=== PATIENT | female | born 2000 | race Caucasian/White ===

== ENCOUNTER 2021-12-06 09:04 | Emergency (ER) | payer MEDICAID, OTHER, SELFPAY ==
[2021-12-06 10:41] VITALS: BP 169/70; PULSE 82; RESP 18; TEMP 36.4; O2SAT 94
--- NOTE | 2021-12-06 11:52 | ED_ITS ---
HPI - General Adult General Chief complaint: General Medical Stated complaint: pain in stomach Time Seen by Provider: 12/06/21 11:42 Source: patient Mode of arrival: ambulatory Limitations: language barrier (Dutch educational sign language interpreter #[id number]) History of Present Illness HPI narrative: 21-year-old female presenting to the ED complaining lower pelvic discomfort, yellow vaginal discharge, and dysuria. States ex boyfriend cheated on her and is also experiencing symptoms. LMP now. Denies nausea, vomiting, diarrhea, abnormal vaginal bleeding Onset (ago): day(s) Related Data Previous Rx's Medication Instructions Recorded doxycycline hyclate 100 mg tablet 100 mg PO BID 7 days #14 tabs 12/06/21 Allergies Allergy/AdvReac Type Severity Reaction Status Date / Time DIPIRONA Allergy Unknown Uncoded 12/06/21 10:40 Review of Systems Review of Systems: Constitutional: No Fever, No Chills, No Fatigue, No Malaise ENT/Mouth: No Ear Pain, No Nasal Congestion, No sore throat, No Rhinorrhea, No Swallowing Difficulty Eyes: No Eye Pain, No Swelling, No Redness, No Vision Changes Cardiovascular: No Chest Pain, No SOB, No Edema Respiratory: No Cough, No Sputum, No Dyspnea Gastrointestinal: No Nausea, No Vomiting, No Diarrhea, No Constipation, + Abdominal pain Genitourinary: No irregular bleeding, + Dysuria, No Urinary Frequency, No Hematuria, No Urgency, No Flank Pain, No Urinary Flow Changes Musculoskeletal: No joint pain, No Myalgias, No Joint Swelling Skin: No Skin Lesions, No rash Neuro: No Weakness, No Dizziness, No Headache Yes all other systems are reviewed and are negative Constitutional: Constitutional: Reports as per [facility] Past Medical History Attestation statement: The following information was validated with the patient. Social History Social History Advance Directives: No Advance Directives Information Provided: No Physical Exam ED Vital Signs: Vital Signs - 24 hr 12/06/21 10:41 Temperature 97.6 F Pulse Rate 82 Respiratory Rate 18 Blood Pressure 169/70 H Pulse Oximetry 94 Oxygen Delivery Method Room Air BMI result Body Mass Index 0.0 Const General: cooperative, healthy appearing, comfortable and no acute distress Orientation/consciousness: patient oriented x3 Limitations: no limitations HENMT Head: Yes normal to inspection and Yes atraumatic Ears: hearing grossly normal bilaterally General nose exam: Normal external nose present Face and sinus: Yes normal facial exam Eyes General: appearance normal, both eyes and all related structures EOM: EOMs intact bilaterally Neck Neck: Yes normal visual inspection and Yes no meningeal signs Resp Effort & Inspection: normal respiratory effort and no respiratory distress Auscultation: clear to auscultation bilaterally Cardio Rate: regular rate Heart sounds: S1 normal heart sound present and S2 normal heart sound present GI Inspection: Yes normal to inspection Palpation (GI): Soft to palpation, nontender, no guarding and not rigid General: Yes no CVA tenderness Speculum Exam - Vagina: vaginal bleeding Speculum Exam - Cervix: Abnormal cervical discharge present clear Bimanual exam- vagina & uterus: no cervical motion tenderness Bimanual Exam- Adnexa, other: normal adnexae, no masses and no tenderness OB/external & speculum: vaginal bleeding Back/Spine/Pelvis Back: no CVA tenderness Skin Rashes: no rashes Wounds: no wounds Neuro General: patient oriented x3, tone normal and no meningeal signs Gait exam (Neuro): Normal gait present Extrem General: Yes normal to inspection Course Course Course Narrative: -UA with blood/RBCs as expected, not infected. negative -patient will receive IM Rocephin and p.o. doxycycline in the ED Results discussed with patient including worrisome signs and symptoms and strict return precautions, and when to return to the emergency department. They verbalized understanding and feel safe for discharge at this time. Medical Decision Making MDM Narrative Medical decision making narrative: 21-year-old female presenting to the ED complaining lower pelvic discomfort, yellow vaginal discharge, and dysuria. On exam vital signs stable, NAD, nontoxic appearing, abdomen soft/nontender, no CVA tenderness, on pelvic exam vaginal bleeding noted, patient is on menses, with clear vaginal discharge, no CMT or adnexal tenderness/masses. Concern for STI. Rule out UTI/. Low suspicion for ovarian torsion/TOA Plan: UA, , STI testing Patient agreeable to empiric STI treatment Medical Records Medical records reviewed: Yes I reviewed the patient's medical records. Lab Data Lab results reviewed: Yes I reviewed the patient's lab results. Labs: Lab Results 12/06/21 12/06/21 Range/Units 12:08 12:08 Urine Color Yellow Urine Appearance Clear Urine pH 8.0 (5.0-9.0) Ur Specific [place] 1.010 (1.005-1.025) Urine Protein Negative (Neg-Trace) mg/dL Urine Glucose (UA) Negative (Negative) mg/dL Urine Ketones Negative (Negative) mg/dL Urine Blood Large (3+) H (Negative) Urine Nitrite Negative (Negative) Ur Leukocyte Esterase Negative (Negative) Urine RBC 6-10 H (0-2) /HPF Urine WBC 0-5 (0-5) /HPF Ur Squamous Epith Cells 3-5 (0-2) /HPF Urine Bacteria None Seen (None Seen) Hyaline Casts 0-2 (0-2) /LPF Urine Test NEGATIVE (NEGATIVE) Discharge Plan Discharge Clinical Impression: Vaginal discharge Patient Disposition: Home, Self-Care Additional Instructions: We tested you for sexually transmitted infections. The results will be back in 48-72 hours Your empirically treated for gonorrhea and chlamydia with a an injection and doxycycline which you need to continue taking twice a day for 1 week Avoid any sexual contact until you know the results of her cultures. Contact your partner so they can be tested and treated as well. We recommend you be retested for STIs once symptoms have resolved and your done treatment If you develop persistent worsening symptoms, vaginal bleeding, abdominal pain, nausea/vomiting or fever return to the emergency department Testamos voc? para infec??es sexualmente transmiss?veis. Os resultados estar?o de volta em 48-72 horas Seu tratamento emp?rico para gonorreia e clam?josue com betsy inje??o e doxiciclina que voc? precisa continuar tomando duas vezes ao josue por 1 semana Evite qualquer contato sexual at? conhecer os resultados de suas culturas. Entre em contato com seu parceiro para que ariel tamb?m possa ser testado e tratado. Recomendamos que voc? seja testado novamente para DSTs assim que os sintomas forem resolvidos e seu tratamento conclu?do Se voc? desenvolver sintomas persistentes de piora, sangramento vaginal, leander abdominal, n?usea/v?ashly ou febre, retorne ao pronto-jennifer Prescriptions: New doxycycline hyclate 100 mg tablet 100 mg PO BID 7 Days Qty: 14 0RF Referrals: Physician,Glendy J [Primary Care Provider] - Bandar Chin MD [Physician] - 10 days
[2021-12-06 12:19] LABS: Appearance Urine Clear; Color Urine Yellow; Glucose Urine UA Negative (Negative); Leukocyte Esterase Urine Negative (Negative); Nitrite Urine Negative (Negative); UMIC TRIGGER UACC YES; UPreg QC Valid YES; Urine Blood Large (3+) (Negative); Urine Ketones Negative (Negative); Urine Pregnancy NEGATIVE (NEGATIVE); Urine Protein Negative (Neg-Trace)
[2021-12-06 12:24] LABS: Bacteria Urine None Seen (None Seen); Hyaline Casts Urine 0-2 /LPF (0-2); WBC Urine 0-5 /HPF (0-5)
[2021-12-06] MEDS: cefTRIAXone sodium 500 MG, Lidocaine HCl 1 % MPF 1 ML IM (13:09)
[2021-12-06 16:02] LABS: CT PCR NOT DETECTED (Not Detect.); NG PCR NOT DETECTED (Not Detect.)
[2021-12-07 13:10] LABS: BV Int Neg Control Negative (Negative); BV Int Pos Control Positive (Positive)
== END 2021-12-06 13:25 | disposition home or self-care (01) ==
PROVIDERS: Physician Assistant; Emergency Provider Emergency Medicine
DX: N89.8 Other specified noninflammatory disorders of vagina (principal); R10.30 Lower abdominal pain, unspecified; Z20.2 Contact with and (suspected) exposure to infections with a predominantly sexual mode of transmission
CPT/HCPCS: 81001; 81025; 87480; 87491; 87510; 87591; 87660; 96372; 99283; 99284; J0696